=== PATIENT | female | born 1995 ===

== ENCOUNTER 2023-09-19 08:50 | Inpatient (IN) | payer OTHER ==
[2023-09-19 10:35] LABS: BASO % 0.5 % (0-2.0); EOS % 1.2 % (0-4.5); HEMATOCRIT 35.4 % (32.4-45.2); HEMOGLOBIN 11.9 GM/dL (10.7-15.3); LYMPH % 23.4 % (8-40); MCH 28.8 pg (25.7-33.7); MCHC 33.5 g/dl (32.0-36.0); MEAN CELL VOLUME 86.1 fl (80-96); MEAN PLT VOLUME 8.3 fl (7.5-11.1); MONO % 8.2 % (3.8-10.2); NEUT % 66.7 % (42.8-82.8); PLATELET COUNT 308 10^3/uL (134-434); RBC 4.11 M/mm3 (3.60-5.2); RDW 17.2 % (11.6-15.6); WHITE BLOOD COUNT 9.2 K/mm3 (4.0-10.0)
[2023-09-19 10:41] LABS: INR 0.83 (0.83-1.09); PROTHROMBIN TIME (PATIENT) 9.4 SEC (9.7-13.0)
[2023-09-19 10:43] LABS: ACTIVATED PTT 27.8 SECONDS (25.2-36.5)
[2023-09-19 10:52] LABS: POTASSIUM 4.3 mmol/L (3.5-5.1)
[2023-09-19 10:54] LABS: CALCIUM 8.7 mg/dL (8.5-10.1)
[2023-09-19 10:55] LABS: BLOOD UREA NITROGEN 14.1 mg/dL (7-18)
[2023-09-19 10:58] VITALS: BMI 32.8
[2023-09-19 10:58] LABS: CREATININE 0.6 mg/dL (0.55-1.3)
[2023-09-19] MEDS: DINOPROSTONE 10 MG VAGINAL SUPPOSITORY VG STA ×2 (10:58→23:05)
[2023-09-19 12:29] LABS: HIV INTERPRETATION NEGATIVE (NEGATIVE)
[2023-09-20] MEDS ORDERED: PROMETHAZINE HCL 25 MG/1 ML VIAL ONE (01:17)
[2023-09-20] MEDS ORDERED: BUTORPHANOL TARTRATE 2 MG/ML VIAL ONE (01:17)
[2023-09-20] MEDS: BUTORPHANOL TARTRATE 1 MG/ML VIAL IVPB ONE (01:50)
[2023-09-20] MEDS: PROMETHAZINE HCL 25 MG/1 ML VIAL IVPB ONE (01:50)
[2023-09-20] MEDS: ELECTROLYTE-148 SOLN 1,000 ML IV SCH (01:52)
[2023-09-20] MEDS ORDERED: OXYTOCIN 20 UNITS in 0.9% NS 20 UNIT/1,000 ML INFUS.BAG IV ONE (04:19)
[2023-09-20] MEDS ORDERED: LIDOCAINE HCL 1% PRESERVATIVE FREE - 30ML VIAL ONE (04:19)
[2023-09-20] MEDS: OXYTOCIN 20 UNITS in 0.9% NS 20 UNIT/1,000 ML INFUS.BAG IV SCH (05:05)
[2023-09-20] MEDS ORDERED: ACETAMINOPHEN 325 MG TABLET (FP) PO PRN (05:38)
[2023-09-20] MEDS ORDERED: IBUPROFEN 600 MG TABLET (FP) PO PRN (05:38)
[2023-09-20] MEDS ORDERED: WITCH HAZEL 50% (TUCKS) 40 PAD/JAR PAD TP PRN (05:38)
[2023-09-20] MEDS ORDERED: BENZOCAINE 28 GM HEMORRHOIDAL OINTMENT TP PRN (05:38)
[2023-09-20] MEDS ORDERED: BISACODYL 10 MG SUPP.RECT RC PRN (05:38)
[2023-09-20 06:26] LABS: CORD BASE EXCESS -7.9 mmol/L (0-2); CORD PCO2 48.8 mmHg (30-78); CORD pH 7.231 (7.14-7.44)
[2023-09-20 06:48] LABS: CORD HCO3 23.7 mmHg (20-29); CORD PCO2 99.3 mmHg (30-78)
[2023-09-20 06:50] LABS: CORD pH 6.995 (7.14-7.44)
[2023-09-20] MEDS: DINOPROSTONE 10 MG VAGINAL SUPPOSITORY VG ONE (07:19)
[2023-09-20] MEDS: BENZOCAINE 20% 57 GM BOTTLE TP PRN (18:31)
[2023-09-21 06:57] LABS: BASO % 0.5 % (0-2.0); HEMATOCRIT 31.7 % (32.4-45.2); HEMOGLOBIN 10.3 GM/dL (10.7-15.3); LYMPH % 22.5 % (8-40); MCH 28.5 pg (25.7-33.7); MCHC 32.6 g/dl (32.0-36.0); MEAN CELL VOLUME 87.6 fl (80-96); MEAN PLT VOLUME 8.8 fl (7.5-11.1); MONO % 8.3 % (3.8-10.2); NEUT % 67.7 % (42.8-82.8); PLATELET COUNT 284 10^3/uL (134-434); RBC 3.62 M/mm3 (3.60-5.2); RDW 17.3 % (11.6-15.6)
[2023-09-21] MEDS: SENNOSIDES/DOCUSATE COMBO (SENNA PLUS) TABLET (UD) PO PRN (21:21)
[2023-09-22 10:26] VITALS: BP 93/58; PULSE 81; RESP 16; TEMP 98.1
== END 2023-09-22 12:42 | disposition home or self-care (01) | DRG 560 ==
LOC: JLDR 08:50 → J3W 09-20 08:00
PROVIDERS: ADMIT Student in an Organized Health Care Education/Training Program; ATTEND Student in an Organized Health Care Education/Training Program
PROC: 3E0P7VZ Introduction of Hormone into Female Reproductive, Via Natural or Artificial Opening (ICD-10-PCS; 2023-09-19)
PROC: 10E0XZZ Delivery of Products of Conception, External Approach (ICD-10-PCS; principal; 2023-09-20)
PROC: 0KQM0ZZ Repair Perineum Muscle, Open Approach (ICD-10-PCS; 2023-09-20)
PROC: 0W8NXZZ Division of Female Perineum, External Approach (ICD-10-PCS; 2023-09-20)
DX: O70.1 Second degree perineal laceration during delivery (principal); Z3A.41 41 weeks gestation of pregnancy; Z37.0 Single live birth
CPT/HCPCS: 36415; 36600; 80048; 82803; 85025; 85610; 85730; 86780; 86803; 86850; 86900; 86901; 87389